=== PATIENT | male | born 1990 | race African-American/Black ===

== ENCOUNTER 2017-03-13 13:36 | Emergency (ER) | payer OTHER ==
[~2017-03-13] VITALS: Ht 175.3 cm; Wt 74.8 kg
[2017-03-13 16:01] VITALS: BP 123/69
== END 2017-03-13 16:03 | disposition home or self-care (01) ==
LOC: ER 13:36
DX: S00.03XA Contusion of scalp, initial encounter (principal); W22.8XXA Striking against or struck by other objects, initial encounter; Y93.64 Activity, baseball; Y92.89 Other specified places as the place of occurrence of the external cause; Y99.8 Other external cause status